=== PATIENT | female | born 1935 | race Caucasian/White ===

== ENCOUNTER 2016-11-13 14:59 | Emergency (ER) | payer MEDICARE, OTHER ==
[~2016-11-13] VITALS: Ht 157.5 cm; Wt 75.0 kg
[2016-11-13] MEDS ORDERED: DONNATAL/LIDOCAINE/MAALOX 55 ML BOTTLE PO ONE (18:15)
[2016-11-13 18:58] VITALS: BP 154/63
== END 2016-11-13 19:07 | disposition home or self-care (01) ==
LOC: EMS 15:00
DX: R13.19 Other dysphagia (principal); I10 Essential (primary) hypertension
CPT/HCPCS: 70360; 99283; 99284